=== PATIENT | male | born 1950 | race Caucasian/White ===

== ENCOUNTER 2021-02-02 14:12 | Outpatient (CLI) | payer MEDICARE | END 2021-02-02 14:13 | disposition home or self-care (01) | LOC: CSHSPEC 14:12 | PROVIDERS: ATTEND Orthopaedic Surgery | DX: M54.16 Radiculopathy, lumbar region (principal); Z98.1 Arthrodesis status; M47.816 Spondylosis without myelopathy or radiculopathy, lumbar region; M48.061 Spinal stenosis, lumbar region without neurogenic claudication; N28.9 Disorder of kidney and ureter, unspecified; Z95.0 Presence of cardiac pacemaker | CPT/HCPCS: 71045; 72148 ==